=== PATIENT | male | born 1945 | race Caucasian/White ===

== ENCOUNTER → 2017-10-06 | Outpatient (CLI) | payer OTHER ==
[~2017-10-06] MED LIST: AMIT50; AMIT50 PO; AMITRIPTYLINE; ATEN25 PO; ATOR10 PO; CELE100 PO; CIME300; CIME60EL PO; DIAZ5 PO; FLUSAL2505 IH; HYDACE10B; NORCO
== END | disposition home or self-care (01) ==
LOC: LAB 10:36 → LAB SHORT 10:36
DX: R10.13 Epigastric pain (principal); R10.12 Left upper quadrant pain
CPT/HCPCS: 87338

== ENCOUNTER 2019-04-06 10:01 | Inpatient (IN) | payer MEDICARE ==
[~2019-04-06] VITALS: Ht 175.3 cm; Wt 72.5 kg
[2019-04-06 10:43] LABS: Hematocrit 43.4 % (37.0-53.0); Mean Corpuscular HGB Conc 32.3 g/dL (31.5-36.5); Mean Corpuscular Volume 93 fL (80-100); Platelet Count 211 K/mm3 (150-400); RDW Coefficient Variation 14.8 % (11.7-14.2); RDW Standard Deviation 50.8 fL (35.1-46.3); Red Blood Cell Count 4.67 M/mm3 (4.30-5.90)
[2019-04-06 10:47] LABS: Mean Platelet Volume 13.1 fL (9.1-12.4)
[2019-04-06 11:02] LABS: Albumin, Blood 3.4 g/dL (3.4-5.0); Albumin/Globulin Ratio 0.9 (0.8-1.8); Bilirubin, Total 0.7 mg/dL (0.1-1.0); Calcium, Blood 8.9 mg/dL (8.5-10.1); Creatinine, Blood 2.11 mg/dL (0.60-1.20); Globulin, Blood 3.9 g/dL (2.2-4.0); Potassium, Blood 4.9 mmol/L (3.5-5.5); Total Protein, Blood 7.3 g/dL (6.4-8.2)
[2019-04-06 11:10] LABS: BASOPHILS PERCENT MAN 0 % (0-2); EOSINOPHILS PERCENT MAN 0 % (0-6); LYMPHOCYTES ABSOLUTE MAN 33.51 K/mm3 (0.84-5.20); LYMPHOCYTES PERCENT MAN 76 % (21-46); MONOCYTES ABSOLUTE MAN 0.88 K/mm3 (0.16-1.47); MONOCYTES PERCENT MAN 2 % (4-13); SEG NEUTROPHILS PERCENT MAN 22 % (41-73); TOTAL CELLS COUNTED 100
[2019-04-06 11:31] LABS: Troponin I 0.865 ng/mL (0.000-0.040)
[2019-04-06] MEDS ORDERED: Lisinopril2.5 MG (11:51)
[2019-04-06] MEDS ORDERED: ELIQUIS5 MG (11:51)
[2019-04-06] MEDS ORDERED: METO25 (11:52)
[2019-04-06] MEDS ORDERED: FLUTICASONE-SA1 EAC4 INH (12:02)
[2019-04-06] MEDS ORDERED: CIME400 PO ×2 (12:02→16:12)
[2019-04-06] MEDS ORDERED: OMEP20ER PO (12:03)
[2019-04-06] MEDS ORDERED: OMEGA-3 ACID ETH1 GM PO (12:03)
[2019-04-06] MEDS ORDERED: PREG150 PO (12:03)
[2019-04-06] MEDS ORDERED: ELIQUIS5 M3 PO (12:03)
[2019-04-06] MEDS ORDERED: TOPROL XL50 MG PO (12:03)
[2019-04-06] MEDS ORDERED: PRINIVIL10 MG PO (12:04)
--- NOTE | 2019-04-06 13:37 | NUR ---
Echocardiogram completed.
[2019-04-06] MEDS ORDERED: ALPR.25 PO (16:14)
[2019-04-06] MEDS ORDERED: Norco 10-325 T1 EACH PO (16:15)
[2019-04-06] MEDS ORDERED: TIZA4 PO (16:16)
[2019-04-06] MEDS ORDERED: METO50ER PO (16:17)
[2019-04-06] MEDS ORDERED: PROAIR DIGIHAL90 MCG INH (16:21)
[2019-04-06 17:14] LABS: Bun/Creatinine Ratio 36.8 (12.0-20.0); Calcium, Blood 8.2 mg/dL (8.5-10.1); Creatinine, Blood 2.01 mg/dL (0.60-1.20); Potassium, Blood 5.1 mmol/L (3.5-5.5)
[2019-04-06] MEDS ORDERED: FLUT1DIS5 INH (18:31)
[2019-04-06] MEDS ORDERED: Ventolin/Prove6.7 GM INH (18:32)
--- NOTE | 2019-04-06 18:48 | NUR ---
155-RECEIVED THIS PATIENT FROM ER WITH A DIAGNOSIS OF A-FIB WITH RVR, SHORTNESS OF BREATH AND PNEUMONIA. PT IS ALERT AND ORIENTED. PT IS CURRENTLY ON A SINUS RHYTHM AFTER BEING CARDIOVERTED IN THE ER. STILL ON GETS SHORT OF BREATH WITH ANY ACTIVITY. 170-PT SEEN BY DR. KEBEDE. UPDATED HIM OF PT'S STATUS. DR. KEBEDE WAS NOTIFED OF THE LACTIC ACID RELFEX RESULT.
--- NOTE | 2019-04-06 19:13 | NUR ---
SHIFT SUMMARY: PT IS SLEEPING AT THIS TIME. STILL HAVING SHORTNESS OF BREATH. AFEBRILE. PT WAS ABLE TO TOLERATE HIS DINNER. PT HAD RECEIVED A TOTAL OF 3LITERS OF FLUID BOLUSES. SYSTOLIC BLODD PRESSURE FROM LOW 80s TO 120s.
--- NOTE | 2019-04-06 20:04 | NUR ---
PT RESTING IN BED. JUST FINISHED BREATHING TREATMENT. DENIES PAIN AND N/V. GETS SOB WITH ANY EXERTION. WHEN EXERTING PT HAS AUDIBLE WHEEZING. NO REQUESTS. CALL LIGHT IN REACH.
[2019-04-07 03:55] LABS: Hematocrit 34.2 % (37.0-53.0); Hemoglobin 10.8 g/dL (13.5-17.5); Mean Corpuscular HGB Conc 31.6 g/dL (31.5-36.5); Mean Corpuscular Volume 95 fL (80-100); Platelet Count 115 K/mm3 (150-400); RDW Coefficient Variation 14.7 % (11.7-14.2); RDW Standard Deviation 51.6 fL (35.1-46.3); White Blood Cell Count 17.93 K/mm3 (4.00-11.30)
[2019-04-07 04:13] LABS: Anion Gap 7 mmol/L (6-16); Blood Urea Nitrogen 49 mg/dL (8-24); Bun/Creatinine Ratio 44.1 (12.0-20.0); CO2, Blood 21 mmol/L (21-32); Calcium, Blood 7.5 mg/dL (8.5-10.1); Chloride, Blood 116 mmol/L (98-108); Creatinine, Blood 1.11 mg/dL (0.60-1.20); Glomerular Filtration Rate >60 (60-); Glucose, Blood 168 mg/dL (70-99); Magnesium, Blood 1.8 mg/dL (1.6-2.4); Phosphorus, Blood 1.9 mg/dL (2.5-4.9); Potassium, Blood 4.4 mmol/L (3.5-5.5); Sodium, Blood 144 mmol/L (136-145)
[2019-04-07 05:35] LABS: BAND PERCENT MAN 2 % (0-8); BASOPHILS PERCENT MAN 0 % (0-2); EOSINOPHILS PERCENT MAN 0 % (0-6); LYMPHOCYTES ABSOLUTE MAN 12.19 K/mm3 (0.84-5.20); LYMPHOCYTES PERCENT MAN 68 % (21-46); MONOCYTES ABSOLUTE MAN 0.17 K/mm3 (0.16-1.47); MONOCYTES PERCENT MAN 1 % (4-13); NEUTROPHILS ABSOLUTE MAN 5.55 K/mm3 (1.96-9.15); SEG NEUTROPHILS PERCENT MAN 29 % (41-73); TOTAL CELLS COUNTED 100
--- NOTE | 2019-04-07 07:14 | NUR ---
PT DIDN'T HAVE ANY CHANGES OVERNIGHT. RESTING IN BED. NO SIGN OF DISTRESS.
--- NOTE | 2019-04-07 08:10 | NUR ---
ASSUMED CARE RECEIEVED REPORT FROM SYLVIA CHENEY. PT IS IN FOWLERS EATING BREAKFAST. NO AUDIBLE WHEEZES, AND IS NOT IN ANY APPARENT RESPIRATORY DISTRESS. HE IS ON 3L NC. NS IS INFUSING AT 125ML/HR. KPHOS RIDER INFUSING. COMPLAINING OF 10/10 BACK/ABDOMINAL PAIN, ACHING/BURNING WHEN HE MOVES. HE HAS HISTORY OF CHRONIC PAIN AND OPIOID DEPENDENCE. PT IS ALERT AND ORIENTED TO SELF, PLACE, SITUATION AND TIME. BED LOW AND LOCKED. CALL LIGHT WITHIN REACH.
--- NOTE | 2019-04-07 08:48 | NUR ---
UPDATE -PT HAS A NONPRODUCTIVE COUGH. MAY NOT BE ABLE TO SEND A SPUTUM SAMPLE TO LAB.
--- NOTE | 2019-04-07 09:53 | NUR ---
UPDATE DR. KEBEDE IN ROOM WITH PATIENT. STATES THE PT CAN BE MADE PCU STATUS, AND HE ORDERED A TROPONIN BLOOD DRAW. THINKS PT WILL STILL NEED A DAY OR TWO MORE IN THE HOSPITAL FOR ANTIBIOTICS AND TO BE WEANED FROM OXYGEN.
--- NOTE | 2019-04-07 19:17 | NUR ---
SHIFT SUMMARY PT HAD A GOOD DAY TODAY. HE IS OFF OXYGEN, OFF IV FLUIDS, AND TOOK A SHOWER INDEPENDENTLY. HE NEEDED HELP GETTING TO AND FROM SHOWER VIA WHEELCHAIR, HOWEVER. HE STILL HAS DYSPNEA WITH EXERTION. HE MAINTAINS HIS SATS WELL IN THE MID 90'S. HIS RR BECOMES VERY HIGH, WHICH IS HIS MAIN PROBLEM, AND HE GETS FLUSHED AND SWEATY. IN BED PT WAS CLAMMY, AND COOL. WITH TEMPERATURES IN THE LOW 96 DEGREES F. WARM BLANKETS HELPED AND A SHOWER HELPED. PT REMAINS IN SINUS RHYTHM, WITH STABLE BP'S. BED IS LOW AND LOCKED. CALL LIGHT WITHIN REACH.
--- NOTE | 2019-04-08 04:40 | NUR ---
END OF SHIFT SUMMARY PT IS AXO. DISPLAYS BASELINE TREMORS. HAS REMAINED IN SR WITH OCCASIONAL PAC'S. LUNGS REMAIN COARSE T/O. AT TIMES HAS DISPLAYED AN AUDIBLE WHEEZE WELL. HAS HAD A "COUGHING FIT" THIS SHIFT THAT LASTED AROUND 30 MINUTES. THIS RESOLVED WITH A PRN ALBUTEROL UPDRAFT. PT HAS BEEN USING URINAL. VSS. NO REAL ACUTE CHANGES THIS SHIFT. CBG TAKEN AT 2200 DIRECTED BY NURSE NOTIFY. DESPITE BEING ASKED, PT HAS NOT REQUIRED PAIN MEDICATION THIS SHIFT AND HAS SLEPT FOR THE MAJORITY OF IT. HAS USED CALL LIGHT APPROPRIATELY. WILL CONTINUE TO MONITOR UNTIL SHIFT CHANGE.
--- NOTE | 2019-04-08 07:42 | NUR ---
ASSUMED CARE RECEIVED REPORT FROM NOC RN. PT IS LYING IN BED WITH A STABLE HR/RHYTHM. HE IS ON ROOM AIR, AND IS COMPLAINING OF BACK PAIN. BED IS LOW AND LOCKED. CALL LIGHT WITHIN REACH. HE IS SALINE LOCKED.
[2019-04-08 08:01] LABS: Hematocrit 36.7 % (37.0-53.0); Mean Corpuscular HGB 30.3 pg (26.0-34.0); Mean Corpuscular HGB Conc 32.7 g/dL (31.5-36.5); Mean Corpuscular Volume 93 fL (80-100); Platelet Count 130 K/mm3 (150-400); RDW Coefficient Variation 14.6 % (11.7-14.2); RDW Standard Deviation 49.4 fL (35.1-46.3); Red Blood Cell Count 3.96 M/mm3 (4.30-5.90); White Blood Cell Count 21.87 K/mm3 (4.00-11.30)
[2019-04-08 08:16] LABS: Albumin, Blood 2.9 g/dL (3.4-5.0); Anion Gap 9 mmol/L (6-16); Blood Urea Nitrogen 34 mg/dL (8-24); Bun/Creatinine Ratio 45.3 (12.0-20.0); CO2, Blood 23 mmol/L (21-32); Calcium, Blood 8.9 mg/dL (8.5-10.1); Chloride, Blood 116 mmol/L (98-108); Creatinine, Blood 0.75 mg/dL (0.60-1.20); Glomerular Filtration Rate >60 (60-); Glucose, Blood 150 mg/dL (70-99); Mean Platelet Volume 13.2 fL (9.1-12.4); Phosphorus, Blood 2.1 mg/dL (2.5-4.9); Potassium, Blood 4.4 mmol/L (3.5-5.5); Sodium, Blood 148 mmol/L (136-145)
[2019-04-08 08:53] LABS: BASOPHILS PERCENT MAN 0 % (0-2); EOSINOPHILS PERCENT MAN 0 % (0-6); LYMPHOCYTES ABSOLUTE MAN 16.83 K/mm3 (0.84-5.20); LYMPHOCYTES PERCENT MAN 77 % (21-46); MONOCYTES ABSOLUTE MAN 0.43 K/mm3 (0.16-1.47); MONOCYTES PERCENT MAN 2 % (4-13); NEUTROPHILS ABSOLUTE MAN 4.59 K/mm3 (1.96-9.15); SEG NEUTROPHILS PERCENT MAN 21 % (41-73); TOTAL CELLS COUNTED 100
[2019-04-08] MEDS ORDERED: AZIT250 PO (15:09)
[2019-04-08] MEDS ORDERED: PRED20 PO (15:15)
--- NOTE | 2019-04-08 15:38 | NUR ---
SHIFT SUMMARY PT IS BEING DISCHARGED TO HOME. NEW PRESCRIPTIONS WERE CALLED INTO [facility]. A MESSAGE WAS LEFT ON THE ANSWERING MACHINE, DUE TO THEM BEING CLOSED TODAY. I INFORMED PT ON THE IMPORTANCE OF GOING TOMORROW AND PICKING UP MEDICATIONS - PT IS RECEPTIVE. I ALSO COUNSELED HIM ON QUITTING SMOKING. HE ALREADY HAS AN APPOINTMENT WITH HIS PCP 04/16/19 - HE IS INFORMED ON THIS. HE HAD A BREATHING TREATMENT PRIOR TO BEING DISCHARGED. HIS SISTER IS GOING TO PICK HIM UP. PT REPORTS PAIN, BUT HE HAS CHRONIC PAIN, AND TAKES NORCO AT HOME FOR IT. PT IS IN SINUS RHYTHM WITH PAC'S, NOT AFIB. HE TOOK HIS TOPROL, AND WILL CONTINUE TO TAKE IT DAILY. PT IS UNDERSTANDING OF PREDNISONE TAPER. PT ON ROOM AIR. PT KNOWS TO FINISH ANTIBIOTIC COURSE.
== END 2019-04-08 17:09 | disposition home or self-care (01) | DRG 871 ==
LOC: ER 10:01 → ICUW 13:48
PROVIDERS: Internal Medicine; ADMIT Internal Medicine Endocrinology, Diabetes & Metabolism
PROC: 5A2204Z Restoration of Cardiac Rhythm, Single (ICD-10-PCS; principal; 2019-04-06)
DX: A41.9 Sepsis, unspecified organism (principal); J18.9 Pneumonia, unspecified organism; N17.9 Acute kidney failure, unspecified; J44.0 Chronic obstructive pulmonary disease with (acute) lower respiratory infection; J44.1 Chronic obstructive pulmonary disease with (acute) exacerbation; C91.10 Chronic lymphocytic leukemia of B-cell type not having achieved remission; R65.20 Severe sepsis without septic shock; D64.9 Anemia, unspecified; I48.0 Paroxysmal atrial fibrillation; N18.3 Chronic kidney disease, stage 3 (moderate); I12.9 Hypertensive chronic kidney disease with stage 1 through stage 4 chronic kidney disease, or unspecified chronic kidney disease; G89.29 Other chronic pain; M54.5 Low back pain; I95.9 Hypotension, unspecified; K21.9 Gastro-esophageal reflux disease without esophagitis; G25.81 Restless legs syndrome; F17.210 Nicotine dependence, cigarettes, uncomplicated; Z79.51 Long term (current) use of inhaled steroids; Z79.899 Other long term (current) drug therapy
CPT/HCPCS: 36415; 71046; 80048; 80053; 80069; 82947; 83605; 83735; 83880; 84100; 84484; 85025; 87040; 87070; 87205; 92960; 93005; 93010; 93306; 94640; 94760; 96361-59; 96365-59; 96367-59; 96375-59; 99285-25; C9113; J0456; J0696; J1170; J2704; J2920; J7030; J7050; J7060; J7120